=== PATIENT | female | born 1955 ===

== ENCOUNTER 2017-04-12 19:35 | Emergency (ER) | payer BC ==
[~2017-04-12 19:35] MED LIST: FENO200C PO; LORA0.5T PO; LOSA100T3 PO; METO50CR PO; NAPR220T95 PO; TAB-TAB PO
[2017-04-12 20:17] VITALS: BP 147/89; PULSE 87; RESP 20; TEMP 98; O2SAT 90
--- NOTE | 2017-04-12 20:37 | PD ---
HPI Chief Complaint: Dizziness Time Seen by Provider: 20:34 Travel History International Travel<30 days: No Contact w/Intl Traveler<30days: No Traveled to known affect area: No History of Present Illness HPI 61yo F with PMH of TIA and IBS presents to the ED with c/o dizziness, nausea, frontal headache that started about 2 hours ago. Said when she look a certain direction, the room spins. Denies any fever, neck pain, chest pain, sob, abdominal pain, focal weakness or numbness. Denies any history of vertigo or tinnitus. Said her PMD sent her to a stereo equipment installer for lightheadedness when she had TIA so unsure if it really was a TIA. PFSH Past Medical History Cerebrovascular Accident: Yes Social History Tobacco Use: No Allergies-Medications (Allergen,Severity, Reaction): Coded Allergies: latex (Verified Allergy, Severe, blisters, hives, 04/12/17) pineapple (Verified Allergy, Unknown, 04/12/17) Reported Meds & Prescriptions Reported Meds & Active Scripts Active Tylenol (Acetaminophen) 325 Mg Tab 650 Mg PO Q6H PRN Meclizine (Meclizine HCl) 25 Mg Tab 25 Mg PO TID PRN Reported Metoprolol Succinate ER 24 HR (Metoprolol Succinate) 50 Mg Tab 50 Mg PO DAILY Fenofibrate Micronized 200 Mg Cap 200 Mg PO DAILY Review of Systems Except as stated in HPI: all other systems reviewed are Neg Physical Exam Narrative GENERAL: 61yo F not in distress. SKIN: Focused skin assessment warm/dry. HEAD: Atraumatic. Normocephalic. EYES: Pupils equal and round at 3mm bilaterally. EOMI. ENT: No nasal bleeding or discharge. Mucous membranes pink and moist. NECK: No nuchal rigidity. CARDIOVASCULAR: Regular rate and rhythm. No murmur appreciated. RESPIRATORY: No accessory muscle use. Clear to auscultation. Breath sounds equal bilaterally. GASTROINTESTINAL: Abdomen soft, non-tender, nondistended. MUSCULOSKELETAL: No obvious deformities. No clubbing. No cyanosis. No edema. NEUROLOGICAL: Awake and alert. No obvious cranial nerve deficits. Motor grossly within normal limits. Normal speech. Sensation intact. PSYCHIATRIC: Appropriate mood and affect; insight and judgment normal. Data Data Last Documented VS Vital Signs Date Time Temp Pulse Resp B/P (MAP) Pulse Ox O2 Delivery O2 Flow Rate FiO2 04/12/17 23:28 81 20 131/71 (91) 92 04/12/17 22:45 Room Air 04/12/17 20:17 98.0 Orders Orders Electrocardiogram (04/12/17 20:34) Complete Blood Count With Diff (04/12/17 20:34) Comprehensive Metabolic Panel (04/12/17 20:34) Magnesium (Mg) (04/12/17 20:34) Troponin I (04/12/17 20:34) Act Partial Throm Time (Ptt) (04/12/17 20:34) Prothrombin Time / Inr (Pt) (04/12/17 20:34) Urinalysis - C+S If Indicated (04/12/17 20:34) Ct Brain W/O Iv Contrast(Rout) (04/12/17 20:34) Prochlorperazine Inj (Compazine Inj) (04/12/17 20:45) Meclizine (Antivert) (04/12/17 22:30) Ketorolac Inj (Toradol Inj) (04/12/17 22:45) Ed Discharge Order (04/12/17 23:23) Labs Laboratory Tests Test 04/12/17 21:00 04/12/17 21:05 Urine Color YELLOW Urine Turbidity SLIGHT Urine pH 7.0 Urine Specific [place] 1.015 Urine Protein NEG mg/dL Urine Glucose (UA) NEG mg/dL Urine Ketones NEG mg/dL Urine Occult Blood NEG Urine Nitrite NEG Urine Bilirubin NEG Urine Leukocyte Esterase NEG Urine Squamous Epithelial Cells 0-5 /hpf Urine Amorphous Sediment MOD Microscopic Urinalysis Comment CULT NOT INDICATED White Blood Count 8.5 TH/MM3 Red Blood Count 4.88 MIL/MM3 Hemoglobin 14.9 GM/DL Hematocrit 44.4 % Mean Corpuscular Volume 91.0 FL Mean Corpuscular Hemoglobin 30.6 PG Mean Corpuscular Hemoglobin Concent 33.6 % Red Cell Distribution Width 13.4 % Platelet Count 233 TH/MM3 Mean Platelet Volume 7.8 FL Neutrophils (%) (Auto) 68.6 % Lymphocytes (%) (Auto) 21.3 % Monocytes (%) (Auto) 7.0 % Eosinophils (%) (Auto) 2.3 % Basophils (%) (Auto) 0.8 % Neutrophils # (Auto) 5.8 TH/MM3 Lymphocytes # (Auto) 1.8 TH/MM3 Monocytes # (Auto) 0.6 TH/MM3 Eosinophils # (Auto) 0.2 TH/MM3 Basophils # (Auto) 0.1 TH/MM3 CBC Comment DIFF FINAL Differential Comment Prothrombin Time 10.9 SEC Prothromb Time International Ratio 1.0 RATIO Activated Partial Thromboplast Time 27.3 SEC Blood Urea Nitrogen 16 MG/DL Creatinine 0.84 MG/DL Random Glucose 124 MG/DL Total Protein 7.6 GM/DL Albumin 4.1 GM/DL Calcium Level 9.3 MG/DL Magnesium Level 2.2 MG/DL Alkaline Phosphatase 55 U/L Aspartate Amino Transf (AST/SGOT) 14 U/L Alanine Aminotransferase (ALT/SGPT) 24 U/L Total Bilirubin 0.3 MG/DL Sodium Level 139 MEQ/L Potassium Level 3.8 MEQ/L Chloride Level 103 MEQ/L Carbon Dioxide Level 29.4 MEQ/L Anion Gap 7 MEQ/L Estimat Glomerular Filtration Rate 68 ML/MIN Troponin I LESS THAN 0.02 NG/ML MDM Medical Decision Making Medical Screen Exam Complete: Yes Emergency Medical Condition: Yes Interpretation(s) EKG: NSR 82bpm. Normal axis. No ST segment elevation or depression. TWI III. Differential Diagnosis Migraine headache vs. vertigo vs. ICH vs. intracranial mass Narrative Course 61yo F with frontal headache, nausea, and dizziness about 2 hours prior to arrival. Said this headache feels different from her usual headache. Said when she turn her head left, she feels spinning. Denies any fever, neck pain. Labs reviewed, no leukocytosis. Troponin negative. CMP unremarkable. UA negative. CT brain negative. O2 sat is 92-93% on RA but pt has sleep apnea and not complaining of any sob. Pt given toradol, compazine and meclizine. She states headache and dizziness resolved. She is ambulating without any assistance. Return precautions given. Diagnosis Primary Impression: Dizziness Patient Instructions: General Instructions Departure Forms: Tests/Procedures Additional Instructions: Please follow up with your primary care physician tomorrow. Return to the ED if dizziness returns, focal weakness or numbness or any other concerning symptoms. Med/Other Pt SpecificInfo: Prescription(s) given Scripts Acetaminophen (Tylenol) 325 Mg Tab 650 MG PO Q6H Y for PAIN SCALE 1 TO 4, #20 TAB 0 Refills Prov: Janice Javier DO 04/12/17 Meclizine (Meclizine) 25 Mg Tab 25 MG PO TID Y for VERTIGO, #10 TAB 0 Refills Prov: Janice Javier DO 04/12/17 Disposition: 01 DISCHARGE HOME Condition: Stable Janice Javier DO Apr 12, 2017 20:37
[2017-04-12 20:45] VITALS: BP 151/77; PULSE 84; RESP 20; O2SAT 92
[2017-04-12] MEDS ORDERED: PROCHLORPERAZINE INJ 10 MG/2 ML VIAL IV PUSH ONE (20:45)
[2017-04-12 21:21] LABS: AUTOMATED NEUTROPHIL # 5.8 TH/MM3 (1.8-7.7); BASOPHIL # 0.1 TH/MM3 (0-0.2); BASOPHIL % 0.8 % (0.0-2.0); EOSINOPHIL # 0.2 TH/MM3 (0-0.4); EOSINOPHIL % 2.3 % (0.0-4.0); HEMATOCRIT 44.4 % (35.0-46.0); HEMO FLAGS DIFF FINAL; LYMPH % 21.3 % (9.0-44.0); LYMPHOCYTE # 1.8 TH/MM3 (1.0-4.8); MEAN CORPUSCULAR HEMOGLOBIN 30.6 PG (27.0-34.0); MEAN CORPUSCULAR HGB CONC 33.6 % (32.0-36.0); NEUT % 68.6 % (16.0-70.0); PLATELET COUNT 233 TH/MM3 (150-450); RED BLOOD COUNT 4.88 MIL/MM3 (4.00-5.30); RED CELL DISTRIBUTION WIDTH 13.4 % (11.6-17.2); WHITE BLOOD COUNT 8.5 TH/MM3 (4.0-11.0)
[2017-04-12 21:30] LABS: CHLORIDE 103 MEQ/L (98-107); POTASSIUM 3.8 MEQ/L (3.5-5.1); SODIUM (NA) 139 MEQ/L (136-145)
[2017-04-12 21:33] LABS: BLOOD, URINE NEG (NEG); GLUCOSE,URINE NEG (NEG); KETONE, URINE NEG (NEG); NITRITE,URINE NEG (NEG)
[2017-04-12 21:34] LABS: ANION GAP 7 MEQ/L (5-15); BICARBONATE 29.4 MEQ/L (21.0-32.0); BLOOD UREA NITROGEN 16 MG/DL (7-18); MAGNESIUM 2.2 MG/DL (1.5-2.5)
[2017-04-12] MEDS ORDERED: FENO200C PO (21:36)
[2017-04-12] MEDS ORDERED: METO1TAB9 PO (21:36)
[2017-04-12 21:37] LABS: ALT (GPT) 24 U/L (10-53); AST (GOT) 14 U/L (15-37); GLOMERULAR FILTRATION RATE 68 ML/MIN (>89)
[2017-04-12 21:39] LABS: TOTAL BILIRUBIN ADULT 0.3 MG/DL (0.2-1.0)
[2017-04-12 21:40] LABS: ALKALINE PHOSPHATASE 55 U/L (45-117)
[2017-04-12 21:41] LABS: URINE COLOR YELLOW (YELLW/STRAW)
[2017-04-12 21:42] LABS: COMMENT (UR) CULT NOT INDICATED; CULTURE IF INDICATED CULT NOT INDICATED; SQUAMOUS EPITHELIAL CELL URINE 0-5 /hpf (0-5)
[2017-04-12 21:46] LABS: APTT (PATIENT) 27.3 SEC (24.3-30.1); PROTHROMBIN TIME - PATIENT 10.9 SEC (9.8-11.6)
--- NOTE | 2017-04-12 22:24 | RADRPT ---
EXAM DATE/TIME: 04/12/2017 21:13 [facility] COMPARISON: No previous studies available for comparison. INDICATIONS : Dizziness. RADIATION DOSE: 58.63 CTDIvol (mGy) MEDICAL HISTORY : Cerebrovascular disease. SURGICAL HISTORY : None. ENCOUNTER: Initial ACUITY: 1 day PAIN SCALE: 8/10 LOCATION: cranial TECHNIQUE: Multiple contiguous axial images were obtained of the head. Using automated exposure control and adj ustment of the mA and/or kV according to patient size, radiation dose was kept as low as reasonably a chievable to obtain optimal diagnostic quality images. DICOM format image data is available electro nically for review and comparison. FINDINGS: CEREBRUM: The ventricles are normal for age. No evidence of midline shift, mass lesion, hemorrhage or acute in farction. No extra-axial fluid collections are seen. POSTERIOR FOSSA: The cerebellum and brainstem are intact. The 4th ventricle is midline. The cerebellopontine angle i s unremarkable. EXTRACRANIAL: The visualized portion of the orbits is intact. SKULL: The calvaria is intact. No evidence of skull fracture. CONCLUSION: Normal examination. Lucio Borges MD on April 12, 2017 at 22:22 Board Certified Radiologist. This report was verified electronically.
[2017-04-12] MEDS ORDERED: MECLIZINE HCL 25 MG TAB PO ONE (22:30)
[2017-04-12 22:45] VITALS: BP 119/61; PULSE 83; RESP 20; O2SAT 92
[2017-04-12] MEDS ORDERED: KETOROLAC TROMETHAMINE 30 MG/ML (IVP) VIAL IV PUSH ONE (22:45)
[2017-04-12] MEDS ORDERED: MECL-62 PO (23:22)
[2017-04-12] MEDS ORDERED: TYLE325T PO (23:23)
[2017-04-12 23:28] VITALS: BP 131/71
--- NOTE | 2017-04-13 14:15 | EKG ---
Date Performed: 04/12/2017 Time Performed: 20:43:03 PTAGE: 61 years EKG: Sinus rhythm NORMAL ECG NO PREVIOUS TRACING DOCTOR: Alex Yousif Interpretating Date/Time 04/13/2017 14:10:48
== END 2017-04-12 23:31 | disposition home or self-care (01) ==
LOC: PHED 19:35
DX: R42 Dizziness and giddiness (principal); R51 Headache; Z86.73 Personal history of transient ischemic attack (TIA), and cerebral infarction without residual deficits
CPT/HCPCS: 70450; 80053; 81001; 83735; 84484; 85025; 85610; 85730; 93005; 96374; 96375; 99285; J0780; J1885